=== PATIENT | male | born 2000 | race Caucasian/White ===

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

== ENCOUNTER 2019-01-30 21:56 | Emergency (ER) | payer OTHER ==
[~2019-01-30] VITALS: Ht 180.3 cm; Wt 109.3 kg
[~2019-01-30 21:56] MED LIST changes: +BUSPIRONE HCL10 MG PO; +FOCALIN XR20 MG PO; +PROZ20 PO
[2019-01-30 22:03] VITALS: Ht 180.3 cm; Wt 109.3 kg
[2019-01-31 00:02] VITALS: BP 114/70
== END 2019-01-31 00:34 | disposition home or self-care (01) ==
LOC: ED 21:56
DX: R51 Headache (principal); R11.2 Nausea with vomiting, unspecified; R42 Dizziness and giddiness; E11.9 Type 2 diabetes mellitus without complications
CPT/HCPCS: 82962; J0780; J1200; J1885; J2405; J7030

== ENCOUNTER 2019-02-22 21:53 | Emergency (ER) | payer OTHER ==
[~2019-02-22] VITALS: Ht 180.3 cm; Wt 112.7 kg
[2019-02-22 22:18] VITALS: Ht 180.3 cm; Wt 112.7 kg
[2019-02-23 00:22] VITALS: BP 115/71
== END 2019-02-23 00:22 | disposition home or self-care (01) ==
LOC: ED 21:53
DX: G44.209 Tension-type headache, unspecified, not intractable (principal); F90.9 Attention-deficit hyperactivity disorder, unspecified type; E11.9 Type 2 diabetes mellitus without complications; F41.9 Anxiety disorder, unspecified; E10.8 Type 1 diabetes mellitus with unspecified complications
CPT/HCPCS: 82962; J0780; J1885

== ENCOUNTER 2019-07-17 21:47 | Emergency (ER) | payer OTHER ==
[~2019-07-17] VITALS: Ht 180.3 cm; Wt 112.5 kg
[2019-07-17 22:00] VITALS: Ht 180.3 cm; Wt 112.5 kg
[2019-07-18 04:02] VITALS: BP 135/87
== END 2019-07-18 04:35 | disposition home or self-care (01) ==
LOC: ED 21:47
DX: R51 Headache (principal); R07.89 Other chest pain; H57.13 Ocular pain, bilateral; E10.9 Type 1 diabetes mellitus without complications
CPT/HCPCS: 82962; J0780; J1200; J1885; J2060; J7030; Q0092

== ENCOUNTER 2019-07-30 09:42 | Inpatient (IN) | payer OTHER ==
[~2019-07-30] VITALS: Ht 180.3 cm; Wt 106.0 kg
[2019-07-30 10:58] LABS: PLATELET COUNT 258 x10^3mcL (130-400); RED CELL DISTRIBUTION WIDTH 12.6 % (11.5-14.5)
[2019-07-30 11:20] LABS: ALBUMIN 3.4 g/dL (3.4-5.0); ALKALINE PHOSPHATASE 118 U/L (46-116); ALT/SGPT 18 U/L (16-63); AST/SGOT 9 U/L (15-37); BILIRUBIN TOTAL 1.2 mg/dL (0.20-1.00); CALCIUM 8.4 mg/dL (8.5-10.1); CARBON DIOXIDE 14.7 mmol/L (21-32); CHLORIDE SERUM 100 mmol/L (98-107); CREATININE SERUM 1.3 mg/dL (0.7-1.3); GFR1 > 60 mL/min; LIPASE 51 IU/L (73-393); SODIUM SERUM 135 mmol/L (136-145); TOTAL PROTEIN, SERUM 6.4 g/dL (6.4-8.2)
[2019-07-30 11:33] LABS: BAND NEUTROPHIL 3 % (0-10); MONOCYTE 2 % (0-7); SEGMENTED NEUTROPHILS 88 % (37-75)
[2019-07-30 11:34] LABS: PLATELET MORPHOLOGY PLATELETS NORMAL; rbc morphology (normal/abnorm) ABNORMAL (NORMAL)
[2019-07-30 12:26] LABS: GLUCOSE SERUM 559 mg/dL (74-106)
[2019-07-30 12:46] LABS: microscopic required? NO
[2019-07-30 13:04] LABS: urine erythrocyte NEGATIVE (NEGATIVE)
[2019-07-30 16:22] LABS: CALCIUM 9.2 mg/dL (8.5-10.1); CARBON DIOXIDE 13.9 mmol/L (21-32); CHLORIDE SERUM 103 mmol/L (98-107); CREATININE SERUM 1.3 mg/dL (0.7-1.3); GFR1 > 60 mL/min; GLUCOSE SERUM 436 mg/dL (74-106); MAGNESIUM 2.1 mg/dL (1.8-2.4); PHOSPHOROUS 5.1 mg/dL (2.5-4.9); POTASSIUM SERUM 4.7 mmol/L (3.5-5.1); SODIUM SERUM 139 mmol/L (136-145)
[2019-07-30 20:04] VITALS: BP 108/59
[2019-07-30 20:40] LABS: CALCIUM 8.8 mg/dL (8.5-10.1); CARBON DIOXIDE 18.1 mmol/L (21-32); CHLORIDE SERUM 109 mmol/L (98-107); CREATININE SERUM 1.2 mg/dL (0.7-1.3); GFR1 > 60 mL/min; GLUCOSE SERUM 201 mg/dL (74-106); MAGNESIUM 2.1 mg/dL (1.8-2.4); PHOSPHOROUS 3.2 mg/dL (2.5-4.9); POTASSIUM SERUM 4.2 mmol/L (3.5-5.1); SODIUM SERUM 142 mmol/L (136-145)
[2019-07-31] VITALS (7 sets, daily range): BP systolic 107–127; BP diastolic 53–81; Ht 180.3 cm; Wt 106.0 kg
[2019-07-31 00:41] LABS: CALCIUM 8.8 mg/dL (8.5-10.1); CARBON DIOXIDE 21.3 mmol/L (21-32); CHLORIDE SERUM 107 mmol/L (98-107); CREATININE SERUM 1.2 mg/dL (0.7-1.3); GFR1 > 60 mL/min; GLUCOSE SERUM 202 mg/dL (74-106); MAGNESIUM 1.8 mg/dL (1.8-2.4); PHOSPHOROUS 3.3 mg/dL (2.5-4.9); POTASSIUM SERUM 4.3 mmol/L (3.5-5.1); SODIUM SERUM 139 mmol/L (136-145)
[2019-07-31 05:44] LABS: CALCIUM 8.9 mg/dL (8.5-10.1); CARBON DIOXIDE 21.4 mmol/L (21-32); CHLORIDE SERUM 107 mmol/L (98-107); CREATININE SERUM 1.1 mg/dL (0.7-1.3); GFR1 > 60 mL/min; GLUCOSE SERUM 166 mg/dL (74-106); MAGNESIUM 1.9 mg/dL (1.8-2.4); PHOSPHOROUS 3.2 mg/dL (2.5-4.9); POTASSIUM SERUM 3.7 mmol/L (3.5-5.1); SODIUM SERUM 138 mmol/L (136-145)
[2019-08-01 03:15] VITALS: BP 110/70
[2019-08-01 05:49] LABS: ALKALINE PHOSPHATASE 102 U/L (46-116); ALT/SGPT 19 U/L (16-63); AST/SGOT 10 U/L (15-37); BILIRUBIN TOTAL 0.59 mg/dL (0.20-1.00); CALCIUM 8.7 mg/dL (8.5-10.1); CARBON DIOXIDE 26.3 mmol/L (21-32); CHLORIDE SERUM 104 mmol/L (98-107); CREATININE SERUM 0.9 mg/dL (0.7-1.3); GFR1 > 60 mL/min; GLUCOSE SERUM 167 mg/dL (74-106); MAGNESIUM 1.7 mg/dL (1.8-2.4); POTASSIUM SERUM 3.6 mmol/L (3.5-5.1); SODIUM SERUM 140 mmol/L (136-145); TOTAL PROTEIN, SERUM 6.4 g/dL (6.4-8.2)
[2019-08-01 06:03] LABS: BASOPHIL % 0.5 % (0-2); PLATELET COUNT 257 x10^3mcL (130-400); RED CELL DISTRIBUTION WIDTH 13.1 % (11.5-14.5)
[2019-08-01 06:06] LABS: ALBUMIN 3.1 g/dL (3.4-5.0)
[2019-08-01 07:30] VITALS: BP 111/67
[2019-08-01 11:15] VITALS: BP 123/80
== END 2019-08-01 13:21 | disposition home or self-care (01) | DRG 813 ==
LOC: ED 09:42 → IC 12:21
PROVIDERS: Emergency Medicine; ADMIT Internal Medicine Pulmonary Disease
DX: T85.614A Breakdown (mechanical) of insulin pump, initial encounter (principal); E10.10 Type 1 diabetes mellitus with ketoacidosis without coma; T38.3X6A Underdosing of insulin and oral hypoglycemic [antidiabetic] drugs, initial encounter; F43.20 Adjustment disorder, unspecified; F90.9 Attention-deficit hyperactivity disorder, unspecified type; Z96.41 Presence of insulin pump (external) (internal); Z79.4 Long term (current) use of insulin; Z68.32 Body mass index [BMI] 32.0-32.9, adult; Y92.009 Unspecified place in unspecified non-institutional (private) residence as the place of occurrence of the external cause
CPT/HCPCS: 82962; 90658; 90732; G0378; J1815; J2060; J2270; J2405; J2765; J3490; J7030; Q0092

== ENCOUNTER 2020-07-22 22:46 | Emergency (ER) | payer OTHER, SELFPAY ==
[~2020-07-22] VITALS: Ht 180.3 cm; Wt 117.9 kg
[2020-07-22 22:48] VITALS: BP 125/84; Ht 180.3 cm; Wt 117.9 kg
== END 2020-07-22 23:19 | disposition home or self-care (01) ==
LOC: ED 22:46
DX: U07.1 COVID-19 (principal); E10.8 Type 1 diabetes mellitus with unspecified complications; F90.9 Attention-deficit hyperactivity disorder, unspecified type
CPT/HCPCS: U0003